=== PATIENT | male | born 1955 | race Caucasian/White ===

== ENCOUNTER → 2018-08-20 | Day surgery (SDC) | payer OTHER ==
[~2018-08-20] MED LIST: ASCO500T2 PO; ASPI-630 PO; ATOR40TA PO; FLAX10003 PO; GLIM4TAB2 PO; HYDR-2759 PO; IV RINGERS,LACTATED 1000ML 1,000 ML IV SCH; LIDOCAINE 1% PF 2 ML VIAL. ID PRN; LIDOCAINE 2% PF 5 ML VIAL. ONE; LIRA0.6P2 SQ; METF10007 PO; MIDAZOLAM HCL/PF 2 MG/2 ML VIAL. IV PRN; MULT1TAB52 PO; PROPOFOL 40 ML IV ONE; RAMI10CA53 PO; TAMS0.4C97 PO; fentaNYL PF VIAL 100 MCG/2 ML VIAL IV PRN
[2018-08-20 10:08] VITALS: BP 101/58
== END | disposition home or self-care (01) ==
LOC: SURG 08:48
PROVIDERS: ATTEND Internal Medicine Gastroenterology
DX: Z12.11 Encounter for screening for malignant neoplasm of colon (principal); K57.30 Diverticulosis of large intestine without perforation or abscess without bleeding; K64.0 First degree hemorrhoids; I10 Essential (primary) hypertension; E11.9 Type 2 diabetes mellitus without complications; Z80.0 Family history of malignant neoplasm of digestive organs; Z72.0 Tobacco use; Z79.84 Long term (current) use of oral hypoglycemic drugs; Z79.899 Other long term (current) drug therapy; Z98.890 Other specified postprocedural states; Z79.82 Long term (current) use of aspirin
CPT/HCPCS: 45378; J2001; J2704

== ENCOUNTER 2018-09-06 07:58 | Emergency (ER) | payer OTHER ==
[~2018-09-06] VITALS: Ht 182.9 cm; Wt 99.8 kg
[~2018-09-06 07:58] MED LIST changes: -ASCO500T2 PO; -FLAX10003 PO; -HYDR-2759 PO; -IV RINGERS,LACTATED 1000ML 1,000 ML IV SCH; -LIDOCAINE 1% PF 2 ML VIAL. ID PRN; -LIDOCAINE 2% PF 5 ML VIAL. ONE; -MIDAZOLAM HCL/PF 2 MG/2 ML VIAL. IV PRN; -MULT1TAB52 PO; -PROPOFOL 40 ML IV ONE; -TAMS0.4C97 PO; -fentaNYL PF VIAL 100 MCG/2 ML VIAL IV PRN
[2018-09-06] MEDS ORDERED: KETOROLAC 30 MG/ML VIAL. IV ONE (08:45)
[2018-09-06 08:50] LABS: BASO # 0.1 x10^3/uL (0.0-0.2); BASO % 1 % (0-3); EOS # 0.1 x10^3/uL (0.0-0.7); EOS % 3 % (0-3); HEMATOCRIT 40.4 % (39.0-53.0); HEMOGLOBIN 13.7 g/dL (13.0-17.5); LYMPH # 1.1 x10^3/uL (1.0-4.8); LYMPH % 19 % (24-48); MEAN CORPUSCULAR HEMOGLOBIN 32 pg (25-35); MEAN CORPUSCULAR HGB CONC 34 g/dL (31-37); MEAN CORPUSCULAR VOLUME 94 fL (79-100); MONO # 0.5 x10^3/uL (0.0-1.1); MONO % 10 % (0-9); NEUT # 3.8 x10^3uL (1.8-7.7); NEUT % 67 % (31-73); PLATELET COUNT 155 x10^3/uL (140-400); RED BLOOD COUNT 4.31 x10^6/uL (4.30-5.70); RED CELL DISTRIBUTION WIDTH 13.8 % (11.5-14.5); WHITE BLOOD COUNT 5.6 x10^3/uL (4.0-11.0)
--- NOTE | 2018-09-06 09:01 | PHYS DOC ---
Past Medical History Past Medical History: Diabetes-Type II, High Cholesterol, Hypertension Past Surgical History: Tonsillectomy Alcohol Use: None Drug Use: None Adult General Chief Complaint Chief Complaint: URINARY RETENTION HPI HPI Patient is a 62 year old male with a history of kidney stones presents to the ED complaining of left flank pain x 4 days ago. States that he developed left flank pain late last week and went to see PCP on Thursday whom gave him a pain shot and told him to come to the ED if the pain worsened. Rates pain as 4/10 at its worst. States his pain is gone but is having trouble urinating. History of taking flomax but denies prostate issues. Denies fever, dysuria, hematuria, headache, diarrhea, chest pain, shortness of breath, or nausea/vomiting. Review of Systems Review of Systems Constitutional: Denies fever or chills [] Eyes: Denies change in visual acuity, redness, or eye pain [] HENT: Denies nasal congestion or sore throat [] Respiratory: Denies cough or shortness of breath [] Cardiovascular: No additional information not addressed in HPI [] GI: Complains of flank pain. Denies abdominal pain, nausea, vomiting, bloody stools or diarrhea [] : Denies dysuria or hematuria [] Musculoskeletal: Denies back pain or joint pain [] Integument: Denies rash or skin lesions [] Neurologic: Denies headache, focal weakness or sensory changes [] All other systems were reviewed and found to be within normal limits, except as documented in this note. Current Medications Current Medications Current Medications Medications (Trade) Dose Ordered Sig/[facility] Start Time Stop Time Status Last Admin Dose Admin Ketorolac Tromethamine (Toradol 30mg Vial) 30 mg 1X ONCE 09/06/18 08:45 09/06/18 08:46 DC 09/06/18 08:44 30 MG Allergies Allergies Allergies Coded Allergies Type Severity Reaction Last Updated Verified No Known Drug Allergies 08/20/18 No Physical Exam Physical Exam Constitutional: Well developed, well nourished, no acute distress, non-toxic appearance. [] HENT: Normocephalic, atraumatic Eyes: PERRLA, EOMI, conjunctiva normal, no discharge. [] Neck: Normal range of motion, no tenderness, supple, no stridor. [] Cardiovascular:Heart rate regular rhythm, no murmur [] Lungs & Thorax: Bilateral breath sounds clear to auscultation [] Abdomen: Bowel sounds normal, soft, no tenderness, no masses, no pulsatile mass es. [] Skin: Warm, dry, no erythema, no rash. [] Back: No tenderness, no CVA tenderness. [] Extremities: No tenderness, no cyanosis, no clubbing, ROM intact, no edema. 2+ pedal pulses. [] Neurologic: Alert and oriented X 3, normal motor function, normal sensory function, no focal deficits noted. [] Psychologic: Affect normal, judgement normal, mood normal. [] Current Patient Data Vital Signs Vital Signs Date Time Temp Pulse Resp B/P (MAP) Pulse Ox O2 Delivery O2 Flow Rate FiO2 09/06/18 09:30 68 95 09/06/18 08:20 98.1 17 151/68 (95) Room Air 98.1 Lab Values Laboratory Tests Test 09/06/18 08:20 09/06/18 08:45 White Blood Count 5.6 x10^3/uL (4.0-11.0) Red Blood Count 4.31 x10^6/uL (4.30-5.70) Hemoglobin 13.7 g/dL (13.0-17.5) Hematocrit 40.4 % (39.0-53.0) Mean Corpuscular Volume 94 fL (79-100) Mean Corpuscular Hemoglobin 32 pg (25-35) Mean Corpuscular Hemoglobin Concent 34 g/dL (31-37) Red Cell Distribution Width 13.8 % (11.5-14.5) Platelet Count 155 x10^3/uL (140-400) Neutrophils (%) (Auto) 67 % (31-73) Lymphocytes (%) (Auto) 19 % (24-48) L Monocytes (%) (Auto) 10 % (0-9) H Eosinophils (%) (Auto) 3 % (0-3) Basophils (%) (Auto) 1 % (0-3) Neutrophils # (Auto) 3.8 x10^3uL (1.8-7.7) Lymphocytes # (Auto) 1.1 x10^3/uL (1.0-4.8) Monocytes # (Auto) 0.5 x10^3/uL (0.0-1.1) Eosinophils # (Auto) 0.1 x10^3/uL (0.0-0.7) Basophils # (Auto) 0.1 x10^3/uL (0.0-0.2) Sodium Level 142 mmol/L (136-145) Potassium Level 4.8 mmol/L (3.5-5.1) Chloride Level 104 mmol/L (98-107) Carbon Dioxide Level 27 mmol/L (21-32) Anion Gap 11 (6-14) Blood Urea Nitrogen 18 mg/dL (8-26) Creatinine 0.7 mg/dL (0.7-1.3) Estimated GFR (Cockcroft-Gault) 113.5 BUN/Creatinine Ratio 26 (6-20) H Glucose Level 172 mg/dL (70-99) H Calcium Level 9.4 mg/dL (8.5-10.1) Total Bilirubin 0.5 mg/dL (0.2-1.0) Aspartate Amino Transferase (AST) 18 U/L (15-37) Alanine Aminotransferase (ALT) 25 U/L (16-63) Alkaline Phosphatase 86 U/L (46-116) Total Protein 7.0 g/dL (6.4-8.2) Albumin 4.1 g/dL (3.4-5.0) Albumin/Globulin Ratio 1.4 (1.0-1.7) Urine Collection Type Unknown Urine Color Yellow Urine Clarity Clear Urine pH 5.5 Urine Specific [place] 1.025 Urine Protein Negative mg/dL (NEG-TRACE) Urine Glucose (UA) Negative mg/dL (NEG) Urine Ketones (Stick) Negative mg/dL (NEG) Urine Blood Negative (NEG) Urine Nitrite Negative (NEG) Urine Bilirubin Negative (NEG) Urine Urobilinogen Dipstick 0.2 mg/dL (0.2 mg/dL) Urine Leukocyte Esterase Negative (NEG) Urine RBC 1-2 /HPF (0-2) Urine WBC Occ /HPF (0-4) Urine Squamous Epithelial Cells Few /LPF Urine Bacteria 0 /HPF (0-FEW) Urine Mucus Marked /LPF Laboratory Tests 09/06/18 08:20 Laboratory Tests 09/06/18 08:20 EKG EKG [] Radiology/Procedures Radiology/Procedures [] Course & Med Decision Making Course & Med Decision Making Pertinent Labs and Imaging studies reviewed. (See chart for details) []Discussed lab and imaging findings with patient. Patient states he is feeling better. On re-examination, abdomen is soft nontender nondistended. No peritoneal signs. Tolerating by mouth. Call placed to on-call urology and spoke with Venessa LOPEZ. States that they will see him in office for appointment tomorrow at 1250p and will contact him via his phone. Contact information provided to urology and patient as well. Patient well-appearing and ED. Discussed iliac aneurysm findings. Discussed the importance of follow-up with PCP/vascular regarding further management. 2+ pedal pulses on exam. Patient able to produce urine at this time. Discussed continuing Flomax at home. Discussed the importance of follow-up and reasons to return to the ED. Patient understands and agrees with plan. Dragon Disclaimer Dragon Disclaimer This electronic medical record was generated, in whole or in part, using a voice recognition dictation system. Departure Departure Impression: Primary Impression: Prostate disorder Additional Impressions: Iliac aneurysm Urinary problem in male Disposition: 01 HOME, SELF-CARE Condition: IMPROVED Referrals: DELVIS BURCH DO (PCP) JUDITH LARSEN MD Patient Instructions: Benign Prostatic Hyperplasia, Urinary Retention, Acute, Male Problem Qualifiers LISSETH AMES Sep 06, 2018 09:01
[2018-09-06 09:03] LABS: CALCIUM 9.4 mg/dL (8.5-10.1); CREATININE 0.7 mg/dL (0.7-1.3); GFR 113.5; POTASSIUM 4.8 mmol/L (3.5-5.1)
[2018-09-06 09:06] LABS: BILIRUBIN,URINE NEGATIVE (NEG); CLARITY,URINE CLEAR; NITRITE,URINE NEGATIVE (NEG); PH,URINE 5.5; PROTEIN,URINE NEGATIVE (NEG-TRACE); UROBILINOGEN,URINE 0.2 mg/dL (0.2 mg/dL)
[2018-09-06 09:09] LABS: ALBUMIN 4.1 g/dL (3.4-5.0); ALBUMIN/GLOBULIN RATIO 1.4 (1.0-1.7); TOTAL BILIRUBIN 0.5 mg/dL (0.2-1.0)
[2018-09-06 09:28] LABS: BACTERIA,URINE 0 /HPF (0-FEW); COLOR,URINE YELLOW; SQUAMOUS EPITHELIAL CELL,UR FEW /LPF; WBC,URINE OCC /HPF (0-4)
[2018-09-06 09:30] VITALS: BP 128/61
--- NOTE | 2018-09-06 09:52 | RAD ---
Examination: CT ABDOMEN PELVIS WO CONTRAST History: L FLANK PAIN H/O STONES NO PREV Comparison/Correlation: None Findings: Axial images of the abdomen and pelvis were obtained without contrast. Sagittal and coronal reformatted images were provided. Marked calcification involving the left main and left anterior descending coronary artery noted. Calcification is mild involving the left proximal circumflex coronary artery. Marked calcification of the right coronary artery at its origin is present. Mitral annular calcification noted. Liver, spleen, pancreas, adrenal glands, and gallbladder fossa are unremarkable. Bilateral renal cysts are present. Nonobstructive calyceal calculus involving the right renal interpolar region measuring 0.3 cm diameter is present. Minimal bilateral medullary calcification noted. Left renal pole cyst with minimal calcific lesion within it noted. Appendix is normal. No extraluminal gas. No bowel obstruction. Diverticulosis of the colon is present. Urinary bladder is unremarkable. No enlarged abdominal or pelvic lymph nodes. No ascites or pelvic free fluid. 2 cm diameter left common iliac artery fusiform aneurysm is present. 2 cm diameter proximal left internal iliac artery aneurysm is noted. Calcific involvement of the abdominal aorta and iliac arteries noted. Prostate gland is enlarged measuring 5.3 cm diameter. Concentric disc bulge at L4-5 noted. Impression: Diverticulosis. No inflammatory changes identified. Nonobstructive renal calculus involvement is minimal. Medullary pyramids calcification is minimal. No collecting system obstruction. Prostatomegaly. 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 Significant coronary arterial calcification. Correlate clinically in determining further evaluation. PQRS Compliance Statement: One or more of the following individualized dose reduction techniques were utilized for this examination: 1. Automated exposure control 2. Adjustment of the mA and/or kV according to patient size 3. Use of iterative reconstruction technique Electronically signed by: Marc Leiva MD (09/06/2018 9:49 AM) [facility]
[2018-09-10] MEDS ORDERED: TAMS0.4C97 PO (15:14)
[2018-09-10] MEDS ORDERED: FLAX10003 PO (15:15)
[2018-09-10] MEDS ORDERED: ASCO500T2 PO (15:15)
[2018-09-10] MEDS ORDERED: MULT1TAB52 PO (15:16)
== END 2018-09-06 11:46 | disposition home or self-care (01) ==
LOC: ER 07:58
DX: I72.3 Aneurysm of iliac artery (principal); N42.9 Disorder of prostate, unspecified; N39.9 Disorder of urinary system, unspecified; K57.30 Diverticulosis of large intestine without perforation or abscess without bleeding; N20.0 Calculus of kidney; I10 Essential (primary) hypertension; E78.00 Pure hypercholesterolemia, unspecified; E11.9 Type 2 diabetes mellitus without complications
CPT/HCPCS: 36415; 74176; 80053; 81001; 85025; 96374; 99285; J1885

== ENCOUNTER 2018-09-13 11:26 | Day surgery (SDC) | payer OTHER ==
[~2018-09-13 11:26] MED LIST changes: +ASCO500T2 PO; +FLAX10003 PO; +HYDROmorphone 2 MG/ML VIAL IV PRN; +IV RINGERS,LACTATED 1000ML 1,000 ML IV SCH; +LIDOCAINE 1% PF 2 ML VIAL. ID PRN; +LIDOCAINE 2% JELLY 6ML IN APPLICATOR. ONE; +MORPHINE SULFATE 2 MG/ML VIAL. IV PRN; +MULT1TAB52 PO; +ONDANSETRON PF 4 MG/2 ML VIAL. IV PRN; +PROCHLORPERAZINE 10 MG/2 ML VIAL. IV PRN; +TAMS0.4C97 PO; +fentaNYL PF VIAL 100 MCG/2 ML VIAL IV PRN
[2018-09-13] MEDS ORDERED: SEVOFLURANE 61 TO 120 MINUTES. IH ONE (12:15)
[2018-09-13] MEDS ORDERED: DEXAMETHASONE SOD PHOS 4 MG/ML VIAL ONE (12:16)
[2018-09-13] MEDS ORDERED: fentaNYL PF VIAL 100 MCG/2 ML VIAL ONE ×2 (12:16→14:17)
[2018-09-13] MEDS ORDERED: MIDAZOLAM HCL/PF 2 MG/2 ML VIAL. ONE (12:16)
[2018-09-13] MEDS ORDERED: NEOMY/BACITR/POLYMYXIN OINT PACKET. TP ONE (12:54)
[2018-09-13] MEDS ORDERED: LIDOCAINE 2% PF 5 ML VIAL. ONE (13:10)
[2018-09-13] MEDS ORDERED: PROPOFOL 20 ML IV ONE (13:10)
[2018-09-13] MEDS ORDERED: ONDANSETRON PF 4 MG/2 ML VIAL. ONE (13:10)
[2018-09-13] MEDS ORDERED: KETOROLAC 30 MG/ML INJ FOR OR. INJ ONE (13:10)
[2018-09-13] MEDS ORDERED: ePHEDrine PF IN SALINE 50 MG/10 ML SYRINGE. IV ONE (13:25)
--- NOTE | 2018-09-13 14:02 | PDOC4 ---
OPERATIVE NOTE Date: Date: Sep 13, 2018 Pre-Op Diagnosis: meatal stenosis Post-Op Diagnosis: same Procedure Performed: Urethral meatus probed carefully with small hemostat until opening was defined. The meatus was then incised dorsally and ventrally into fresh tissue. This opened the meatus nicely. 21-Fr scope was then used to examine urethra and bladder. The urethra was otherwise unremarkable. Prostatic urethra was compromised but not obstructed. The bladder exam was unremarkable. Trigone structures normal. The 21- scope was removed and the meatus was then dilated with a 23-Fr scope easily adn the bladder was emptied. Abx ointment was applied and the patient was transferred to . Surgeon: kiley Anesthesia Type: Gen Blood Loss: min Specimans Obtained: none Findings: severe meatal stenosis Complications: none Operative Note: see above JUANITA CUNNINGHAM MD Sep 13, 2018 14:02
[2018-09-13] MEDS: fentaNYL PF VIAL 100 MCG/2 ML VIAL IV PRN ×2 (14:19→14:42)
[2018-09-13] MEDS ORDERED: HYDROcodone/APAP 5/325MG 1 TAB TABLET PO ONE (14:30)
[2018-09-13] MEDS ORDERED: HYDR-2759 PO (14:49)
[2018-09-13 15:20] VITALS: BP 156/73
== END 2018-09-13 16:05 | disposition home or self-care (01) ==
LOC: SURG 11:26
PROVIDERS: ATTEND Urology
DX: N35.911 Unspecified urethral stricture, male, meatal (principal); I10 Essential (primary) hypertension; E78.00 Pure hypercholesterolemia, unspecified; E11.9 Type 2 diabetes mellitus without complications; Z79.899 Other long term (current) drug therapy; Z79.82 Long term (current) use of aspirin; Z79.84 Long term (current) use of oral hypoglycemic drugs; Z80.1 Family history of malignant neoplasm of trachea, bronchus and lung
CPT/HCPCS: 52281; 82962; J0171; J0696; J1100; J1885; J2001; J2250; J2405; J2704; J3010; J7120